=== PATIENT | female | born 1995 | race African-American/Black ===

== ENCOUNTER 2024-11-27 02:19 | Emergency (ER) | payer SELFPAY ==
[~2024-11-27] VITALS: Ht 170.2 cm; Wt 100.0 kg
[2024-11-27 02:24] VITALS: TEMP 97.5
[2024-11-27 03:08] LABS: BASOPHILS % (AUTO) 0.2 % (0.0-2.0); EOSINOPHILS % (AUTO) 4.6 % (1.0-6.0); HEMOGLOBIN 9.1 g/dL (12.0-16.0); LYMPHOCYTES # (AUTO) 1.5 K/uL (1.0-4.8); LYMPHOCYTES % (AUTO) 14.8 % (22.0-44.0); MEAN CORPUSCULAR HEMOGLOBIN 22.3 pg (26.0-34.0); MEAN CORPUSCULAR HGB CONC 31.4 G/dL (31.0-37.0); MEAN CORPUSCULAR VOLUME 71 fL (80-100); MONOCYTES # (AUTO) 0.8 K/uL (0.1-1.0); MONOCYTES % (AUTO) 7.8 % (2.0-9.0); NEUTROPHILS # (AUTO) 7.4 K/uL (1.8-7.7); NEUTROPHILS % (AUTO) 72.6 % (40.0-70.0); PLATELET COUNT (AUTO) 392 K/uL (150-450); RED BLOOD CELL COUNT(AUTO) 4.09 MIL/uL (4.00-5.20); RED CELL DISTRIBUTION WIDTH 18.6 % (11.5-14.5); WHITE BLOOD COUNT (AUTO) 10.2 K/uL (4.5-11.0)
[2024-11-27 03:18] LABS: ANION GAP 9 mmol/L (8-16); CALCIUM, TOTAL 8.8 mg/dL (8.8-10.5); CARBON DIOXIDE 25 mmol/L (22-29); CHLORIDE 101 mmol/L (98-107); CREATININE 0.79 mg/dL (0.60-1.30); GLOMERULAR FILTR. RATE CALC > 60 mL/min (>60); GLUCOSE,RANDOM 93 mg/dL (70-110); POTASSIUM 3.4 mmol/L (3.5-5.1); SODIUM SERUM 135 mmol/L (136-145); UREA NITROGEN, BLOOD 7 mg/dL (7-18)
[2024-11-27] MEDS: VANCOMYCIN HCL 1.5 GM in DEXTROSE 5%-WATER 250 ML IV ONE (03:52)
[2024-11-27] MEDS ORDERED: DOXY-354 PO (04:11)
[2024-11-27] MEDS ORDERED: IBUP-1554 PO (04:11)
[2024-11-27] MEDS ORDERED: CEPH-558 PO (04:11)
[2024-11-27 05:30] VITALS: BP 121/78; PULSE 67; RESP 18; O2SAT 100
== END 2024-11-27 06:08 | disposition home or self-care (01) ==
LOC: EDSEX 02:19 → EMS 02:19
DX: L03.114 Cellulitis of left upper limb (principal); J45.909 Unspecified asthma, uncomplicated
CPT/HCPCS: 99284; 96365; 96366; 80048; 85025; 36415; J7060; J3370